=== PATIENT | female | born 1990 | race Caucasian/White ===

== ENCOUNTER 2020-08-26 09:37 | Emergency (ER) | payer OTHER ==
--- NOTE | 2020-08-26 09:46 | ERPHSYRPT ---
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 This morning, patient states there is been more bright red blood with associated suprapubic and pelvic cramping. Patient did engage in sexual intercourse last night. She does have a history of a spontaneous miscarriage in the past and 2 NICU births. Patient does not see her domestic cleaner for another 3 to 4 weeks. She denies nausea vomiting. She denies fever and chills. She has no chest pain. She is not short of breath. Timing/Duration: yesterday Activities at Onset: none Quality: cramping Abdominal Pain Onset Location: suprapubic Pain Radiation: no radiation Severity of Pain-Max: mild Severity of Pain-Current: mild Modifying Factors: Improves With: nothing Associated Symptoms: denies symptoms, other (Vaginal bleeding) Previous symptoms: no prior history Allergies/Adverse Reactions: latex Allergy (Verified 08/26/20 09:53) Home Medications: Fluticasone Propion/Salmeterol [Fluticasone-Salmeterol 100-50] 1 ea DAILY 08/26/20 [History] Vits W-Ca,Fe,FA(<1Mg) [] 1 ea DAILY 08/26/20 [History] Travel Risk - International Travel Have you traveled outside of the country in past 3 weeks: No - Coronavirus Screening Are you exhibiting any of the following symptoms?: No Close contact with a COVID-19 positive Pt in past 14-21 Days: No - Review of Systems Constitutional: No Symptoms Eyes: No Symptoms Ears, Nose, & Throat: No Symptoms Respiratory: No Symptoms Cardiac: No Symptoms Abdominal/Gastrointestinal: Abdominal Pain (Suprapubic/pelvic mild cramping) Genitourinary Symptoms: No Symptoms Musculoskeletal: No Symptoms Skin: No Symptoms Neurological: No Symptoms Psychological: No Symptoms Endocrine: No Symptoms Hematologic/Lymphatic: No Symptoms Immunological/Allergic: No Symptoms All Other Systems: Reviewed and Negative - Past Medical History Pertinent Past Medical History: Yes - Past Surgical History Past Surgical History: Yes - Nursing Vital Signs Nursing Vital Signs: Initial Vital Signs Temperature 97.0 F 08/26/20 09:38 Pulse Rate 94 H 08/26/20 09:38 Respiratory Rate 18 08/26/20 09:38 Blood Pressure 127/94 08/26/20 09:38 O2 Sat by Pulse Oximetry 99 08/26/20 09:38 Pain Scale Pain Intensity 3 - Physical Exam General Appearance: no apparent distress, alert, anxiety, obese Eye Exam: PERRL/EOMI, eyes nml inspection Ears, Nose, Throat Exam: normal ENT inspection, moist mucous membranes Neck Exam: normal inspection, non-tender, supple, full range of motion Respiratory Exam: normal breath sounds, lungs clear, airway intact, No chest tenderness, No respiratory distress Cardiovascular Exam: regular rate/rhythm, normal heart sounds, normal peripheral pulses Gastrointestinal/Abdomen Exam: soft, normal bowel sounds, No tenderness, No guarding Pelvic Exam: not done Rectal Exam: not done Back Exam: normal inspection, normal range of motion, No CVA tenderness, No vertebral tenderness Extremity Exam: normal inspection, normal range of motion, pelvis stable Neurologic Exam: alert, oriented x 3, cooperative, wink cutter operator II-XII nml as tested, normal mood/affect, nml cerebellar function, nml station & gait, sensation nml Skin Exam: normal color, warm, dry Lymphatic Exam: No adenopathy SpO2 Interpretation: normal O2 Delivery: Room Air - Course Nursing assessment & vital signs reviewed: Yes Ordered Tests: Active Orders 24 hr Category Date Time Status IV Insertion STAT Care 08/26/20 10:06 Active OB <14 WKS 1ST GESTATION [US] Stat Exams 08/26/20 10:07 Completed BMP Stat Lab 08/26/20 10:22 Completed CBC W DIFF Stat Lab 08/26/20 10:22 Completed CULTURE,URINE Stat Lab 08/26/20 10:18 Received HCG, Quantitative (Inhouse) Stat Lab 08/26/20 11:22 Completed UA W/RFX UR CULTURE Stat Lab 08/26/20 10:18 Completed Medication Summary Discontinued Medications Generic Name Dose Route Start Last Admin Trade Name Freq PRN Reason Stop Dose Admin Cephalexin HCl 500 mg 08/26/20 11:45 08/26/20 11:59 Keflex 500 Mg PO 08/26/20 11:46 500 mg STAT ONE Administration Cephalexin HCl Confirm 08/26/20 11:58 Keflex 500 Mg Administered 08/26/20 11:59 Dose 500 mg .ROUTE .STK-MED ONE Sodium Chloride 1,000 mls @ 999 mls/hr 08/26/20 10:06 08/26/20 11:35 Sodium Chloride 0.9% 1000 Ml IV 08/26/20 11:06 Infused .Q1H1M STA Infusion Lab/Rad Data: Laboratory Result Diagrams 08/26/20 10:22 08/26/20 10:22 Laboratory Results 08/26/20 08/26/20 08/26/20 Range/Units 11:22 10:22 10:22 WBC 7.3 (4.0-10.5) K/mm3 RBC 4.96 (4.1-5.4) M/mm3 Hgb 13.6 (12.0-16.0) gm/dl Hct 41.7 (35-47) % MCV 84.1 (78-100) fl MCH 27.4 (26-32) pg MCHC 32.6 (32-36) g/dl RDW 14.4 H (11.5-14.0) % Plt Count 257 (150-450) K/mm3 MPV 10.4 (7.5-11.0) fl Gran % 71.6 H (36.0-66.0) % Eos # (Auto) 0.22 (0-0.5) Absolute Lymphs (auto) 1.41 (1.0-4.6) Absolute Monos (auto) 0.42 (0.0-1.3) Lymphocytes % 19.3 L (24.0-44.0) % Monocytes % 5.7 (0.0-12.0) % Eosinophils % 3.0 (0.00-5.0) % Basophils % 0.4 (0.0-0.4) % Absolute Granulocytes 5.24 (1.4-6.9) Basophils # 0.03 (0-0.4) Sodium 137 (137-145) mmol/L Potassium 4.5 (3.5-5.1) mmol/L Chloride 104 (98-107) mmol/L Carbon Dioxide 26 (22-30) mmol/L Anion Gap 11.5 (5-15) MEQ/L BUN 9 (7-17) mg/dL Creatinine 0.69 (0.52-1.04) mg/dL Estimated GFR > 60.0 ML/MIN Glucose 83 (74-106) mg/dL Calcium 10.1 (8.4-10.2) mg/dL Beta HCG, Quant 109.94 mIU/ml Urine Color (YELLOW) Urine Appearance (CLEAR) Urine pH (5-6) Ur Specific [place] (1.005-1.025) Urine Protein (Negative) Urine Ketones (NEGATIVE) Urine Blood (0-5) Adan/ul Urine Nitrite (NEGATIVE) Urine Bilirubin (NEGATIVE) Urine Urobilinogen (0-1) mg/dL Ur Leukocyte Esterase (NEGATIVE) Urine WBC (Auto) (0-5) /HPF Urine RBC (Auto) (0-2) /HPF U Epithel Cells (Auto) (FEW) /HPF Urine Bacteria (Auto) (NEGATIVE) /HPF Urine Mucus (Auto) (NEGATIVE) /HPF Urine Culture Reflexed (NO) Urine Glucose (NEGATIVE) mg/dL 08/26/20 Range/Units 10:18 WBC (4.0-10.5) K/mm3 RBC (4.1-5.4) M/mm3 Hgb (12.0-16.0) gm/dl Hct (35-47) % MCV (78-100) fl MCH (26-32) pg MCHC (32-36) g/dl RDW (11.5-14.0) % Plt Count (150-450) K/mm3 MPV (7.5-11.0) fl Gran % (36.0-66.0) % Eos # (Auto) (0-0.5) Absolute Lymphs (auto) (1.0-4.6) Absolute Monos (auto) (0.0-1.3) Lymphocytes % (24.0-44.0) % Monocytes % (0.0-12.0) % Eosinophils % (0.00-5.0) % Basophils % (0.0-0.4) % Absolute Granulocytes (1.4-6.9) Basophils # (0-0.4) Sodium (137-145) mmol/L Potassium (3.5-5.1) mmol/L Chloride (98-107) mmol/L Carbon Dioxide (22-30) mmol/L Anion Gap (5-15) MEQ/L BUN (7-17) mg/dL Creatinine (0.52-1.04) mg/dL Estimated GFR ML/MIN Glucose (74-106) mg/dL Calcium (8.4-10.2) mg/dL Beta HCG, Quant mIU/ml Urine Color YELLOW (YELLOW) Urine Appearance SLIGHTLY CLOUDY (CLEAR) Urine pH 5.0 (5-6) Ur Specific [place] 1.024 (1.005-1.025) Urine Protein NEGATIVE (Negative) Urine Ketones NEGATIVE (NEGATIVE) Urine Blood LARGE (0-5) Adan/ul Urine Nitrite NEGATIVE (NEGATIVE) Urine Bilirubin NEGATIVE (NEGATIVE) Urine Urobilinogen NEGATIVE (0-1) mg/dL Ur Leukocyte Esterase TRACE (NEGATIVE) Urine WBC (Auto) 3-5 (0-5) /HPF Urine RBC (Auto) >101 (0-2) /HPF U Epithel Cells (Auto) NONE (FEW) /HPF Urine Bacteria (Auto) RARE (NEGATIVE) /HPF Urine Mucus (Auto) MODERATE (NEGATIVE) /HPF Urine Culture Reflexed YES (NO) Urine Glucose NEGATIVE (NEGATIVE) mg/dL - Progress Progress: improved Progress Note: 08/26/20 12:05 OB ultrasound is negative for intrauterine or ectopic . Medical decision making: This patient likely is not and may have had a spontaneous miscarriage prior to arrival. Her quantitative hCG is low normal range of 109. The plan for her is to take the antibiotics as prescribed to treat her mild urinary tract infection. She is also to follow-up with her domestic cleaner or primary care physician to have a repeat quantitative hCG. Counseled pt/family regarding: lab results, diagnosis, need for follow-up, rad results - Departure Departure Disposition: Home Clinical Impression: UTI (urinary tract infection) during , Vaginal bleeding affecting carter y Condition: Stable Critical Care Time: No [facility] - Additional Instructions: Drink plenty of fluids. Take your antibiotics as prescribed for your mild urinary tract infection. Follow-up with your domestic cleaner or primary care physician to obtain a repeat quantitative hCG next week. Forms: Work/School Release Form Prescriptions: Cephalexin Mh 500 mg [Keflex 500 mg] 500 mg PO TID #21 capsule
[2020-08-26] MEDS ORDERED: Sodium Chloride 0.9% 1000 ML 1,000 ML IV STA (10:06)
[2020-08-26 10:46] LABS: Absolute Neutrophil Ct (ANC) 5.24 (1.4-6.9); BASOPHIL % 0.4 % (0.0-0.4); Basophil (Absolute #) 0.03 (0-0.4); Eosinophil (Absolute #) 0.22 (0-0.5); Hematocrit 41.7 % (35-47); Hemoglobin 13.6 gm/dl (12.0-16.0); Lymphocyte (Absolute #) 1.41 (1.0-4.6); Lymphocytes % 19.3 % (24.0-44.0); Mean Cell Volume 84.1 fl (78-100); Mean Corpuscular Hemoglobin 27.4 pg (26-32); Mean Corpuscular Hgb Concent. 32.6 g/dl (32-36); Mean Platelet Volume 10.4 fl (7.5-11.0); Monocyte (Absolute #) 0.42 (0.0-1.3); Monocytes % 5.7 % (0.0-12.0); Neutrophil % 71.6 % (36.0-66.0); Platelet Count 257 K/mm3 (150-450); Red Blood Count 4.96 M/mm3 (4.1-5.4); Red Cell Distribution Width 14.4 % (11.5-14.0); White Blood Count 7.3 K/mm3 (4.0-10.5)
[2020-08-26 10:52] LABS: ANION GAP 11.5 MEQ/L (5-15); BLOOD UREA NITROGEN 9 mg/dL (7-17); CHLORIDE 104 mmol/L (98-107); Calcium 10.1 mg/dL (8.4-10.2); Carbon Dioxide 26 mmol/L (22-30); Creatinine 1 0.69 mg/dL (0.52-1.04); EST GLOMERULAR FILTRATION RATE > 60.0 ML/MIN; Glucose 83 mg/dL (74-106); Potassium 4.5 mmol/L (3.5-5.1); SODIUM 137 mmol/L (137-145)
[2020-08-26 10:55] LABS: Appearance SLIGHTLY CLOUDY (CLEAR); Bacteria RARE /HPF (NEGATIVE); Bilirubin NEGATIVE (NEGATIVE); Blood LARGE Ery/ul (0-5); Glucose NEGATIVE (NEGATIVE); Ketones NEGATIVE (NEGATIVE); Leukocyte Esterase TRACE (NEGATIVE); Mucus MODERATE /HPF (NEGATIVE); Nitrite NEGATIVE (NEGATIVE); Protein,Urine Dip NEGATIVE (Negative); Specific Gravity 1.024 (1.005-1.025); Urobilinogen NEGATIVE mg/dL (0-1)
[2020-08-26 10:56] LABS: RBC >101 /HPF (0-2)
[2020-08-26] MEDS ORDERED: KEFLEX 500 MG PO ONE (11:45)
[2020-08-26 11:49] VITALS: O2SAT 98
--- NOTE | 2020-08-26 11:57 | XRAY ---
Indication: 6 weeks gestational bleeding and cramping. Two-dimensional transabdominal and transvaginal early OB ultrasound performed. Comparison: None Uterus anteverted measuring 10.8 x 4.6 x 5.6 cm. No focal solid/cystic uterine mass. Endometrial stripe measures 7 mm. No intrauterine gestational sac, pole, or heart tones. Right ovary measures 2.2 x 1.2 x 1.4 cm and the left measures 1.4 x 1.6 x 1.3 cm. Normal perfusion bilaterally. No suspicious adnexal mass or free fluid. Impression: Negative for intrauterine/ectopic . Correlate with serial beta hCG and follow-up sonogram regarding viability.
[2020-08-26] MEDS ORDERED: KEFLEX 500 MG ONE (11:58)
[2020-08-26 12:08] VITALS: BP 104/70; PULSE 78
== END 2020-08-26 12:28 | disposition home or self-care (01) ==
LOC: ED 09:37
DX: O23.41 Unspecified infection of urinary tract in pregnancy, first trimester (principal); Z3A.00 Weeks of gestation of pregnancy not specified; O46.91 Antepartum hemorrhage, unspecified, first trimester
CPT/HCPCS: 36000; 36415; 76801; 80048; 81001; 84702; 85025; 87086; 96360; 99284; A9270-GY